=== PATIENT | male | born 2000 | race Asian ===

== ENCOUNTER 2020-12-27 20:18 | Emergency (ER) | payer OTHER ==
[~2020-12-27] VITALS: Ht 185.4 cm; Wt 109.0 kg
[2020-12-27 20:37] VITALS: BP 159/97
== END 2020-12-27 22:39 | disposition left against medical advice (07) ==
LOC: ER 20:18
DX: Z53.21 Procedure and treatment not carried out due to patient leaving prior to being seen by health care provider (principal)